=== PATIENT | female | born 1955 | race Caucasian/White ===

== ENCOUNTER → 2016-10-06 | Outpatient (CLI) | payer OTHER ==
[~2016-10-06] MED LIST: ALBUTEROL MININEB NEB; ALBUTEROL0.83 MG/ML INH; ALBUTEROL17 GM INH; AMARYL PO; AMBIEN PO; AMBIEN10 MG PO; AMITRYPTYLINE PO; ASPIRIN81 M1 PO; ASPIRIN81 M2 PO; ATENOLOL PO; AUGMENTIN875 M1 PO; BUSPIRONE HCL7.5 MG PO; CALCIUM + D 6001 TA1 PO; CALCIUM 5001 TAB PO; CARAFATE1 G; CLONAZEPAM0.5 MG PO; COZAAR100 MG PO; CYMBALTA PO; DULOXETINE HCL60 MG PO; ESTRACE1 MG PO; ESTROPIPATE1.5 MG PO; FIBER DIET1 TA1 PO; FIBER PO; FIBER0.52 G PO; FLOMAX0.4 M1 PO; FUROSEMIDE40 MG PO; GABAPENTIN300 MG PO; GEODAN PO; GEODON80 MG PO; GLUCOSAMINE CH1 EACH PO; HAIR, SKIN & N1 EAC1 PO; HYDROCODON-ACE1 EAC9 PO; HYDROXYZINE HCL25 M1 PO; INCRUSE ELLI62.5 MCG INH; K-DUR20 ME2 PO; KAPIDEX60 MG PO; KLONOPIN1 M1 PO; KLONOPIN1 MG PO; LAMOTRIGINE100 MG PO; LASIX PO; LATUDA40 MG PO; LEXAPRO PO; LINZESS145 MCG PO; LISINOPRIL-HCTZ1 T19 PO; LOPID600 MG PO; LOSARTAN-HCTZ1 EAC1 PO; LOVASTATIN10 MG PO; LOVASTATIN20 M1 PO; MELOXICAM15 MG PO; METFORMIN HCL1000 M1 PO; METFORMIN PO; MOBIC PO; MULTI VITAMIN1 EACH PO; MULTIVITAMIN1 UDCAP PO; NEURONTIN PO; ONE DAILY MULTI1 TA3 PO; PANTOPRAZOLE SO40 MG PO; PERCOCET5/325 PO; PHENERGAN25 M1 PO; POTASSIUM GLUCO99 MG PO; PREDNISONE PO; PRILOSEC PO; PROBIOTIC1 EAC1 PO; PROBIOTIC1 EAC3 PO; PROPRANOLOL HCL40 MG PO; PROTONIX PO; PROVENTIL INH0.5 ML NEB; PROZAC PO; REGLAN5 MG PO; SODIUM CHLORI1000 ML INJ; TENORMIN50 MG PO; TRILEPTAL300 MG PO; VICODIN PO; VITAMIN E1000 UNI1 PO; VIVELLE-DO1 PATCH.B1 TD; WELLBUTRIN PO; WELLBUTRIN100 MG PO; ZANTAC150 MG PO; ZESTORETIC 20/11 TAB PO; ZOLMITRIPTAN5 MG PO; ZOMIG5 MG PO; ZOMIG5 MG/SPRAY; ZYRTEC10 M1 PO
--- NOTE | ~2016-10-06 | CT2 ---
[facility] A Service of [facility] & [facility] RADIOLOGY TEXT RESULTS PATIENT: TIP SY LOCATION: [facility] : 53 UNIT #: [id number] AGE: [address]: Homero Sofia MD SEX: F ORDER DR: [id number] [facility] [address] [facility]. [place], [place] [address] [id number] O MR#: [id number] Acc #: [id number] NAME: TIP SY : 1955 SEX: F STUDY DATE/TIME: 10/06/2016 13:31 UNIT: [facility] ROOM: STUDY DESCRIPTION: CT Abd and Pelv W Cont Attending Physician: Homero Sofia M.D. Referring Physician: Homero Sofia M.D. Ordering Physician: Homero Sofia M.D. Primary Care Physician: Ban Purvis M.D. MEDICAL IMAGING REPORT This report is preliminary unless electronic signature is present EXAM CT of the abdomen and pelvis with contrast. INDICATION Abdominal pain. Lap-Band July 2014 and had abscess in the abdominal wall requiring surgery three times. Persistent abdominal pain at this site. TECHNIQUE CT scan of the abdomen and pelvis was performed following the administration of oral and IV contrast. Coronal and sagittal reformatted images were obtained. This CT exam was performed with one or more of the following radiation dose reduction techniques: automatic exposure control, adjustment of mA and/or kV according to patient size, and iterative reconstruction. COMPARISON 06/02/2016. FINDINGS There is a calcified granuloma in the right lower lobe. Lung bases are otherwise unremarkable. There is stable fatty infiltration of the liver. Cholecystectomy. Spleen unremarkable. Tiny cyst right kidney. Left kidney unremarkable. The adrenal glands and pancreas are unremarkable. There is a small open wound in the anterior abdominal wall. Subjacent to this is some stranding in the anterior abdominal wall and also a tiny fluid collection. Given the patient's history, this may represent a residual small abscess, however, this does appear to communicate with the open wound and may be spontaneously draining. Correlate clinically. There is no evidence of intraperitoneal fluid, abscess, or free air. There is a stable small fat-containing ventral abdominal wall hernia adjacent to the above-mentioned stranding and fluid collection. [facility]. [facility] A Service of [facility] RADIOLOGY TEXT RESULTS PATIENT: TIP SY LOCATION: [facility] : 53 UNIT #: [id number] AGE: [address]: Homero Sofia MD SEX: F ORDER DR: PELVIS: The colon is unremarkable. There is no free fluid. Hysterectomy. Bone windows demonstrate degenerative changes lumbar spine. IMPRESSION 1. There is a small open wound in the anterior abdominal wall as described above. Subjacent to this is some inflammatory stranding and also a very tiny fluid collection that given the patient's history may represent a residual small abscess, although it is adjacent to the open wound and may be draining spontaneously. Correlate with physical examination. There is no evidence of any intraperitoneal fluid collection or any free air. 2. Additional findings as described. Dictated by... nAgel Smith M.D. THIS IS AN ELECTRONICALLY VERIFIED REPORT Angel Smith M.D. at 10/07/2016 9:32 AM HENRY/camron TD: 10/06/2016 16:52 JOB #: [id number] MEDICAL IMAGING REPORT Page 1 of 1 COPY
[2016-10-06 12:56] LABS: POC - CREATININE 0.87 mg/dL (0.44-1.03); POC - GFR >60.0 mL/min (>60)
== END | disposition home or self-care (01) ==
LOC: CCAT 12:02
PROVIDERS: Surgery
DX: L02.211 Cutaneous abscess of abdominal wall (principal); K76.0 Fatty (change of) liver, not elsewhere classified; K43.9 Ventral hernia without obstruction or gangrene
CPT/HCPCS: 74177; 82565; Q9967

== ENCOUNTER → 2016-10-13 | Outpatient (CLI) | payer OTHER ==
[2016-10-13 10:48] LABS: HEMATOCRIT 36.2 % (35.0-45.0); HEMOGLOBIN 11.9 gm/dL (12.0-16.0); MEAN CELL VOLUME 84.4 FL (83-96); MEAN CORPUSCULAR HEMOGLOBIN 27.8 PG (28-34); MEAN PLATELET VOLUME 7.2 FL (6.5-11.5); RED BLOOD COUNT 4.3 X10e (3.90-5.30); RED CELL DISTRIBUTION WIDTH 15.4 % (11.0-15.5); WHITE BLOOD COUNT 7.1 X10e3 (4.0-10.5)
[2016-10-13 11:26] LABS: BUN/CREATININE RATIO 24.44; CALCIUM SERUM 10.5 mg/dL (8.4-10.2); CREATININE SERUM 0.9 mg/dL (0.6-1.4); GLOM FILT RATE Estimated 68.6 mL/min (>60); POTASSIUM 4.6 mmol/L (3.5-5.1)
== END | disposition home or self-care (01) ==
LOC: CAMB 09:28
PROVIDERS: Surgery
DX: Z01.812 Encounter for preprocedural laboratory examination (principal)
CPT/HCPCS: 36415; 80048; 85027

== ENCOUNTER 2016-10-17 05:35 | Inpatient (IN) | payer OTHER ==
--- NOTE | ~2016-10-17 | EKG ---
PATIENT: TIP SY UNIT #: [id number] Ventricular Rate: 77 BPM Atrial Rate: 77 BPM P-R Interval: 164 ms QRS Duration: 94 ms Q-T Interval: 396 ms QTC Calculation(Bezet): 448 ms P [place]: 69 degrees Calculated R [place]: 2 degrees Calculated T [place]: 66 degrees Diagnosis Line: Normal sinus rhythm Diagnosis Line: Normal ECG Diagnosis Line: When compared with ECG of 03-JUN-2016 11:22, Diagnosis Line: No significant change was found Diagnosis Line: Confirmed by SHER PARRY MD ([id number]) on 10/19/2016 Diagnosis Line: 9:44:16 AM INTERPRETING MD: BRINDA BROWN
--- NOTE | ~2016-10-17 | OR ---
Unit #: [id number] #: [id number] Patient: TIP SY [id number] [address] [address] [id number] I MR#: [id number] NAME: TIP SY ROOM: [facility] Date of Procedure: 10/17/2016 Admission Date: 10/17/2016 Surgeon: Homero Sofia M.D. : 1955 Attending Physician: Homero Sofia M.D. Primary Care Physician: Ban Purvis M.D. 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 POSTOPERATIVE DIAGNOSES 1. Chronic inflammatory reaction, intraabdominal and anterior abdominal wall. 2. Incisional hernia, incarcerated. 3. Abdominal wall lipoma. 4. Subcutaneous abscess. PROCEDURES PERFORMED 1. Diagnostic laparoscopy. 2. Takedown of chronic granulomatous inflammatory process, anterior abdominal wall. 3. Excision of abdominal wall abscess. 4. Excision of subcutaneous lipoma. 5. Partial omentectomy. 6. Repair of incarcerated incisional hernia. CUFFER Raphael Caldera M.D. ANESTHESIA General endotracheal anesthesia. ESTIMATED BLOOD LOSS Minimal. IV FLUIDS 500 crystalloid. COMPLICATIONS None. INDICATIONS FOR PROCEDURE The patient is a 61-year-old lady, who presents with chronic recurrent abdominal wound drainage area. She had a gastric band erosion subsequent inflammation from there. She has had multiple excisions. She presents for diagnostic laparoscopy. DESCRIPTION OF PROCEDURE The patient was taken to the operative theater and placed in supine Unit #: [id number] #: [id number] Patient: TIP SY position. General anesthesia was induced. Her abdomen was prepped and draped. A 5-mm Optiview trocar was placed in the right upper quadrant without difficulty. The abdomen was insufflated to 15 mmHg with CO2. Under direct vision, I placed a 5-mm port. I identified what appeared to be inflammation in the anterior abdominal wall. This appeared to be chronic granulomatous tissue. This was taken down. I identified incarcerated hernia measuring 3 x 2 cm. This was reduced. I then did an incision into an area of nodularity in the right upper quadrant external. This was found to be a lipoma measuring 1 cm in diameter. This was excised. I closed with ion. I then did an elliptical incision of the chronic draining wound measuring 5 cm x 2 cm. This was taken down to the fascia, where I opened this up in parallel with the hernia. The omentum was then brought up through this incision and a ANG stapler was fired across the chronic inflamed omentum. This was then dropped back down. I repaired the hernia with interrupted #1 Vicryl. I then packed with Betadine and closed with ion leaving a portion of the wound opened. She tolerated the procedure well and sent to the recovery room in good condition. Dictated by... Jerry Hope/breanne TD: 10/18/2016 06:04 JOB #: [id number] OPERATIVE REPORT Page 1 of 1 X Homero Sofia MD X PROCEDURE OPERATIVE NOTE
--- NOTE | ~2016-10-17 | DS ---
Unit #: [id number] #: [id number] Patient: TIP SY [id number] [address] [address] [id number] I MR#: [id number] NAME: TIP SY ROOM: [facility] Age: 61 Sex: F Admission Date: 10/17/2016 : 1955 Discharge Date: 10/19/2016 Attending Physician: Homero Sofia M.D. Primary Care Physician: Ban Purvis M.D. DISCHARGE SUMMARY DISCHARGE DIAGNOSIS Chronic abdominal wound. PROCEDURES 1. Exploratory laparotomy. 2. Partial omentectomy. 3. Ventral hernia repair. 4. Excision of chronic abdominal wound infection. HOSPITAL COURSE The patient is a 61-year-old lady who presented status post Lap-Band erosion and port removal and presented with recurrent drainage of her abdominal wound. She underwent the aforementioned procedures. Postop course uncomplicated. She was advanced toward a regular diet, which she tolerated. She was taught dressing changes. DISPOSITION Patient will be discharged home. CONDITION UPON DISCHARGE Good condition. DISCHARGE DIET She is to follow a regular diet as tolerated. ACTIVITY Activity levels were discussed. FOLLOW-UP She is to follow up with Dr. Sofia in 2 weeks. Home health is to assist with normal saline dressing changes on a b.i.d. basis. DISCHARGE MEDICATIONS Her regular home medications and [place] 7.5 mg q.4 p.r.n. She is to complete her course of antibiotics as previously written. Dictated by... Jerry Hope/nikko Unit #: [id number] #: [id number] Patient: ITP SY TD: 10/19/2016 12:31 JOB #: [id number] DISCHARGE SUMMARY Page 1 of 1 X Hmoero Sofia MD X DISCHARGE SUMMARY
[~2016-10-17 05:35] MED LIST changes: -ALBUTEROL MININEB NEB; -COZAAR100 MG PO; -DULOXETINE HCL60 MG PO; -FIBER PO; -FLOMAX0.4 M1 PO; -INCRUSE ELLI62.5 MCG INH; -KLONOPIN1 M1 PO; -LAMOTRIGINE100 MG PO; -LATUDA40 MG PO; -METFORMIN HCL1000 M1 PO; -MULTI VITAMIN1 EACH PO; -PANTOPRAZOLE SO40 MG PO; -PHENERGAN25 M1 PO; -PROBIOTIC1 EAC1 PO; -ZOLMITRIPTAN5 MG PO
[2016-10-17] MEDS ORDERED: FLOMAX0.4 M1 PO (10:25)
[2016-10-17] MEDS ORDERED: LAMOTRIGINE100 MG PO (10:25)
[2016-10-17] MEDS ORDERED: LATUDA40 MG PO (10:26)
[2016-10-17] MEDS ORDERED: COZAAR100 MG PO (10:26)
[2016-10-17] MEDS ORDERED: HYDROXYZINE HCL25 M1 PO (10:26)
[2016-10-17] MEDS ORDERED: PHENERGAN25 M1 PO (10:27)
[2016-10-17] MEDS ORDERED: INCRUSE ELLI62.5 MCG INH (10:27)
[2016-10-17] MEDS ORDERED: ALBUTEROL MININEB NEB (10:28)
[2016-10-17] MEDS ORDERED: HAIR, SKIN & N1 EAC1 PO (10:42)
[2016-10-17] MEDS ORDERED: ASPIRIN81 M2 PO (10:43)
[2016-10-17] MEDS ORDERED: PROBIOTIC1 EAC1 PO (10:43)
[2016-10-17] MEDS ORDERED: MULTI VITAMIN1 EACH PO (10:43)
[2016-10-17] MEDS ORDERED: FIBER PO (10:43)
[2016-10-17] MEDS ORDERED: METFORMIN HCL1000 M1 PO (11:34)
[2016-10-17] MEDS ORDERED: PANTOPRAZOLE SO40 MG PO (11:37)
[2016-10-17] MEDS ORDERED: KLONOPIN1 M1 PO (17:15)
[2016-10-17] MEDS ORDERED: ZOLMITRIPTAN5 MG PO (17:17)
[2016-10-17] MEDS ORDERED: LOPID600 MG PO (17:18)
[2016-10-17] MEDS ORDERED: LOVASTATIN10 MG PO (17:18)
[2016-10-17] MEDS ORDERED: DULOXETINE HCL60 MG PO (17:21)
[2016-10-19] MEDS ORDERED: HYDROCODON-ACE1 EAC9 PO (07:53)
== END 2016-10-19 10:04 | disposition home health service (06) | DRG 354 ==
LOC: CSUR 05:35 → CPACUOF 08:27 → C4C 08:27 → CSUR 09:04 → CPACUOF 09:04 → C4C 10:45
PROVIDERS: Surgery
PROC: 0JB80ZZ Excision of Abdomen Subcutaneous Tissue and Fascia, Open Approach (ICD-10-PCS; 2016-10-17)
PROC: 0WQF4ZZ Repair Abdominal Wall, Percutaneous Endoscopic Approach (ICD-10-PCS; principal; 2016-10-17 07:30)
PROC: 0DBS0ZZ (ICD-10-PCS; 2016-10-17 07:30)
DX: K43.0 Incisional hernia with obstruction, without gangrene (principal); L02.211 Cutaneous abscess of abdominal wall; I10 Essential (primary) hypertension; D17.5 Benign lipomatous neoplasm of intra-abdominal organs; K44.9 Diaphragmatic hernia without obstruction or gangrene; E78.5 Hyperlipidemia, unspecified; J44.9 Chronic obstructive pulmonary disease, unspecified; J45.909 Unspecified asthma, uncomplicated; Z87.891 Personal history of nicotine dependence
CPT/HCPCS: 82947; 88304; 88305; 93005; 94760; J0330; J1644; J2250; J2270; J2405; J2543; J2710; J3010

== ENCOUNTER 2016-10-21 09:18 | Inpatient (IN) | payer OTHER ==
--- NOTE | ~2016-10-21 | DS ---
Unit #: [id number] #: [id number] Patient: TIP SY [id number] [address] [address] [id number] I MR#: [id number] NAME: TIP SY ROOM: 564 Age: 61 Sex: F Admission Date: 10/21/2016 : 1955 Discharge Date: 10/23/2016 Attending Physician: Homero Sofia M.D. Primary Care Physician: Ban Purvis M.D. DISCHARGE SUMMARY HISTORY AND EXAM Ms. Sy is a 61-year-old diabetic who had recently undergone a hernia repair by Dr. Sofia and presented to the ER with a wound dehiscence. Dr. Sofia saw the patient, took her back to the operating room, washed out the wound and repaired the dehiscence. She was admitted postoperatively for observation. In the postop recovery area she had a prolonged cardiac pause believed to be due to a vagal reaction, but she was kept on a monitor, and troponin levels were checked. She had no further arrhythmias. Her heart rate remained stable throughout her hospitalization, and her troponin levels were normal. Her wound is intact and healing well. There is no drainage or cellulitis. Her family has been instructed on dressing changes. She will discharged home today in stable condition to resume her home medications. She can ambulate ad arturo but do no heavy lifting. They are to continue the dressing changes 3 times a day and follow up in the office with Dr. Sofia in 1-2 weeks. A prescription for Tennyson was left for pain control. Patient understood these instructions and discharged home in stable condition. Dictated by... Jerry Ordonez/nikko TD: 10/25/2016 07:05 JOB #: [id number] DISCHARGE SUMMARY Page 1 of 1 X Hermilo Nick MD X DISCHARGE SUMMARY
--- NOTE | ~2016-10-21 | OR ---
Unit #: [id number] #: [id number] Patient: TIP SY [id number] [address] [address] [id number] I MR#: [id number] NAME: TIP SY ROOM: 564 Date of Procedure: 10/21/2016 Admission Date: 10/21/2016 Surgeon: Homero Sofia M.D. : 1955 Attending Physician: Homero Sofia M.D. Primary Care Physician: Ban Purvis M.D. OPERATIVE REPORT PREOPERATIVE DIAGNOSIS Abdominal wound dehiscence fascia. POSTOPERATIVE DIAGNOSIS Abdominal wound dehiscence fascia. PROCEDURE PERFORMED Revision and closure of abdominal wound. RADIOLOGY TRANSPORTER None. ANESTHESIA General anesthesia. ESTIMATED BLOOD LOSS Minimal. IV FLUIDS 700 crystalloid. COMPLICATIONS None. INDICATIONS FOR PROCEDURE The patient is a 61-year-old lady, who underwent an open ventral hernia repair and wound excision and had a coughing spell and subsequent wound dehiscence. She presents for revision. DESCRIPTION OF PROCEDURE The patient was taken back to the operating theater and placed in supine position. General anesthesia was induced. Her abdomen was prepped and draped. I then took the remaining ion out. I enlarged the incision by about 3 cm. This allowed me to get under the fascia and opened the remaining sutures. I found 2 sutures that had broken in the center of the wound. There was some desiccated omentum. This was removed and then tied with 0 Vicryl ties. I then placed the omentum back into the abdominal cavity. I closed with interrupted #1 Vicryl and running 2-0 through the Kenji fascia and subcutaneous. We then packed with Betadine. The patient tolerated the procedure well and sent to recovery room in good condition. Unit #: [id number] #: [id number] Patient: TIP SY Dictated by... Jerry Hope/breanne TD: 10/21/2016 23:16 JOB #: [id number] OPERATIVE REPORT Page 1 of 1 X Homero Sofia MD PROCEDURE OPERATIVE NOTE
--- NOTE | ~2016-10-21 | EKG ---
PATIENT: TIP SY UNIT #: [id number] Ventricular Rate: 89 BPM Atrial Rate: 89 BPM P-R Interval: 180 ms QRS Duration: 96 ms Q-T Interval: 410 ms QTC Calculation(Bezet): 498 ms P [place]: 47 degrees Calculated R [place]: 13 degrees Calculated T [place]: 36 degrees Diagnosis Line: Normal sinus rhythm Diagnosis Line: Normal ECG Diagnosis Line: When compared with ECG of 17-OCT-2016 06:13, Diagnosis Line: T wave inversion now evident in Inferior leads Diagnosis Line: Confirmed by MAGED MOLINA MD ([id number]) on Diagnosis Line: 10/24/2016 8:33:36 AM INTERPRETING MD: JESSE BROWN
--- NOTE | ~2016-10-21 | CO ---
Unit #: [id number] #: [id number] Patient: TIP SY [id number] [address] [place], [place] [address] [id number] MR#: [id number] NAME: TIP SY ROOM: Age: 61 Sex: F Admission Date: 10/21/2016 : 1955 Attending Physician: Albert Alvarado M.D. Primary Care Physician: Ban Purvis M.D. Consultation Date: 10/21/2016 CONSULTATION REPORT BRIEF HISTORY The patient is a 61-year-old lady, status post open ventral hernia repair and wound debridement, who presents after a coughing spell with fatty tissue protruding from the wound. She has had no fevers or chills. Has had some discomfort with this. Had been undergoing normal saline dressing changes. PAST MEDICAL HISTORY 1. Hypertension. 2. Respiratory dysfunction. 3. Diabetes. PAST SURGICAL HISTORY 1. Hysterectomy. 2. Lap Band placement. 3. Lap Band removal. 4. section. 5. Cholecystectomy. HOME MEDICATIONS Home medications are extensive. Please see list. SOCIAL HISTORY No smoking. No alcohol. FAMILY HISTORY Negative for GI malignancy. REVIEW OF SYSTEMS No cardiopulmonary complaints at this time, else 10 system reviewed and negative. PHYSICAL EXAMINATION GENERAL: She is awake, alert, appropriate. VITAL SIGNS: Currently afebrile. HEENT: Unremarkable. NECK: Supple. No JVD. Trachea midline. LUNGS: Clear to auscultation bilaterally. Breath sounds symmetric. CARDIOVASCULAR: Regular rate and rhythm. ABDOMEN: Soft. It is mildly tender around the wound. Protruding omentum. This appears moist. EXTREMITIES: No clubbing, cyanosis, or edema. ASSESSMENT Unit #: [id number] #: [id number] Patient: TIP SY Wound dehiscence. PLAN Recommend revision in the operating room, discussed in detail. Dictated by... Homero Sofia M.D. MARGARETTE/prasanth TD: 10/21/2016 15:00 JOB #: [id number] CONSULTATION REPORT Page 1 of 1 X Homero Sofia MD CONSULTATION REPORT
--- NOTE | ~2016-10-21 | EKG ---
PATIENT: TIP SY UNIT #: [id number] Ventricular Rate: 72 BPM Atrial Rate: 72 BPM P-R Interval: 138 ms QRS Duration: 106 ms Q-T Interval: 402 ms QTC Calculation(Bezet): 440 ms P [place]: 59 degrees Calculated R [place]: 25 degrees Calculated T [place]: 32 degrees Diagnosis Line: Normal sinus rhythm Diagnosis Line: Normal ECG Diagnosis Line: When compared with ECG of 21-OCT-2016 15:56, Diagnosis Line: (unconfirmed) Diagnosis Line: QT has shortened Diagnosis Line: Confirmed by MAGED MOLINA MD ([id number]) on Diagnosis Line: 10/24/2016 8:34:53 AM INTERPRETING MD: JESSE BROWN
[~2016-10-21 09:18] MED LIST changes: +ALBUTEROL MININEB NEB; +COZAAR100 MG PO; +DULOXETINE HCL60 MG PO; +FIBER PO; +FLOMAX0.4 M1 PO; +INCRUSE ELLI62.5 MCG INH; +KLONOPIN1 M1 PO; +LAMOTRIGINE100 MG PO; +LATUDA40 MG PO; +METFORMIN HCL1000 M1 PO; +MULTI VITAMIN1 EACH PO; +PANTOPRAZOLE SO40 MG PO; +PHENERGAN25 M1 PO; +PROBIOTIC1 EAC1 PO; +ZOLMITRIPTAN5 MG PO
[2016-10-21 10:43] LABS: BASOPHIL% 0.3 % (0-2.5); EOSINOPHIL# 0.4 X10e3 (0-0.7); EOSINOPHIL% 6.4 % (0.0-7.0); HEMATOCRIT 30.2 % (35.0-45.0); HEMOGLOBIN 9.9 gm/dL (12.0-16.0); LYMPHOCYTE% 34.4 % (17.0-45.0); MEAN CELL VOLUME 85.7 FL (83-96); MEAN CORPUSCULAR HEMOGLOBIN 28.2 PG (28-34); MEAN CORPUSCULAR HGB CONC 32.9 g/dL (30-36); MEAN PLATELET VOLUME 7.6 FL (6.5-11.5); MONOCYTE# 0.5 X10e3 (0-1.0); MONOCYTE% 8.3 % (3.0-12.0); NEUTROPHIL# 2.9 X10e3 (1.5-7.1); NEUTROPHIL% 50.6 % (40-75); PLATELET COUNT 236 X10e3 (140-420); RED BLOOD COUNT 3.52 X10e (3.90-5.30); RED CELL DISTRIBUTION WIDTH 15.7 % (11.0-15.5); WHITE BLOOD COUNT 5.7 X10e3 (4.0-10.5)
[2016-10-21 10:44] LABS: DIFF IND NO
[2016-10-21 11:07] LABS: BUN/CREATININE RATIO 14.44; CALCIUM SERUM 9.1 mg/dL (8.4-10.2); CREATININE SERUM 0.9 mg/dL (0.6-1.4); GLOM FILT RATE Estimated 68.6 mL/min (>60); POTASSIUM 3.8 mmol/L (3.5-5.1)
[2016-10-22 11:00] LABS: HEMATOCRIT 30.5 % (35.0-45.0); MEAN CELL VOLUME 85.3 FL (83-96); MEAN CORPUSCULAR HGB CONC 32.8 g/dL (30-36); RED BLOOD COUNT 3.57 X10e (3.90-5.30); RED CELL DISTRIBUTION WIDTH 15.9 % (11.0-15.5); WHITE BLOOD COUNT 6.6 X10e3 (4.0-10.5)
[2016-10-22 11:15] LABS: CALCIUM SERUM 9.6 mg/dL (8.4-10.2); GLOM FILT RATE Estimated 60.4 mL/min (>60); MAGNESIUM 1.5 mg/dL (1.6-3.0); PHOSPHOROUS 4.2 mg/dL (2.5-4.6); POTASSIUM 4.2 mmol/L (3.5-5.1)
== END 2016-10-23 12:33 | disposition home health service (06) | DRG 908 ==
LOC: CED 09:18 → CEDOF 10:35 → CED 16:52 → CEDOF 22:11 → C5C 22:11
PROVIDERS: Emergency Medicine; Specialist; Surgery
PROC: 0WQF0ZZ Repair Abdominal Wall, Open Approach (ICD-10-PCS; principal; 2016-10-21 14:30)
DX: T81.32XA Disruption of internal operation (surgical) wound, not elsewhere classified, initial encounter (principal); I97.89 Other postprocedural complications and disorders of the circulatory system, not elsewhere classified; I49.5 Sick sinus syndrome; I10 Essential (primary) hypertension; E11.9 Type 2 diabetes mellitus without complications; Z90.710 Acquired absence of both cervix and uterus; G89.29 Other chronic pain; M54.9 Dorsalgia, unspecified; E78.5 Hyperlipidemia, unspecified; J44.9 Chronic obstructive pulmonary disease, unspecified; J45.909 Unspecified asthma, uncomplicated; Z96.651 Presence of right artificial knee joint; Z96.611 Presence of right artificial shoulder joint; Y83.9 Surgical procedure, unspecified as the cause of abnormal reaction of the patient, or of later complication, without mention of misadventure at the time of the procedure
CPT/HCPCS: 80048; 82947; 83735; 84100; 84484; 85025; 85027; 93005; 94760; 94762; 99285; J0330; J1100; J1170; J1335; J1885; J2185; J2250; J2270; J2405; J2710; J3010; J3475